=== PATIENT | female | born 1985 | race Caucasian/White ===

== ENCOUNTER 2017-10-30 13:49 | Emergency (ER) | payer SELFPAY ==
[~2017-10-30] VITALS: Ht 154.9 cm; Wt 82.0 kg
[2017-10-30 14:04] VITALS: BP 134/89
== END 2017-10-30 15:58 | disposition home or self-care (01) ==
LOC: ER 14:28
DX: L20.9 Atopic dermatitis, unspecified (principal)
CPT/HCPCS: 99283

== ENCOUNTER 2017-12-13 16:04 | Emergency (ER) | payer MEDICAID ==
[~2017-12-13] VITALS: Ht 154.9 cm; Wt 75.0 kg
[2017-12-13 16:12] VITALS: BP 133/81
== END 2017-12-13 22:51 | disposition left against medical advice (07) ==
LOC: ER 16:19
DX: R10.9 Unspecified abdominal pain (principal); Z53.21 Procedure and treatment not carried out due to patient leaving prior to being seen by health care provider

== ENCOUNTER 2019-04-05 13:17 | Emergency (ER) | payer SELFPAY ==
[~2019-04-05] VITALS: Ht 167.6 cm; Wt 75.0 kg
[2019-04-05] MEDS ORDERED: MORPHINE SULFATE 4 MG/ML CPJ (NOT FOR IM USE) IV STA (16:28)
[2019-04-05] MEDS ORDERED: KETOROLAC 30MG/ML VIAL IV STA (16:28)
[2019-04-05] MEDS ORDERED: ONDANSETRON HCL 4MG/2ML INJ IV STA (16:28)
[2019-04-05] MEDS ORDERED: SODIUM CHLORIDE 0.9% 1000ML BAG (SEPSIS BOLUS) IV ONE (16:30)
[2019-04-05 17:17] LABS: CLARITY URINE CLEAR (CLEAR); COLOR URINE YELLOW (YELLOW); KETONES URINE NEGATIVE (NEGATIVE); LEUKOCYTE ESTERASE URINE NEGATIVE (NEGATIVE); NITRITE URINE NEGATIVE (NEGATIVE); OCCULT BLOOD URINE NEGATIVE (NEGATIVE); PROTEIN URINE NEGATIVE (NEGATIVE); SPECIFIC GRAVITY URINE 1.015 (1.005-1.030); UROBILINOGEN URINE 0.2 E.U./dL (0.2-1.0)
[2019-04-05 17:31] LABS: HEMATOCRIT. 36.4 % (36.0-48.0); HEMOGLOBIN. 12.3 g/dL (12.0-16.0); MEAN CORPUSCULAR HEMOGLOBIN 29.2 pg (28.0-32.0); MEAN CORPUSCULAR VOLUME 86.1 fL (81.0-99.0); MEAN PLATELET VOLUME 7.4 fl (7.4-10.4); PLATELET 321 x1000/uL (130-400); RED BLOOD CELL COUNT 4.23 mill/uL (4.2-5.4); RED CELL DISTRIBUTION WIDTH 12.9 % (11.6-14.6)
[2019-04-05 17:33] LABS: CHLORIDE 105 mEq/L (98-107)
[2019-04-05 17:39] LABS: HCG SCREEN NEGATIVE
[2019-04-05 18:03] LABS: PLATELET ESTIMATE NORMAL
[2019-04-05 18:19] LABS: *AMPHETAMINES SCREEN URINE NEGATIVE (NEGATIVE); *BARBITURATES SCREEN URINE NEGATIVE (NEGATIVE); *BENZODIAZEPINES SCREEN URINE NEGATIVE (NEGATIVE); *COCAINE SCREEN URINE NEGATIVE (NEGATIVE); METHADONE URINE SCREEN NEGATIVE (NEGATIVE); PHENCYCLIDINE URINE SCREEN NEGATIVE (NEGATIVE)
[2019-04-05 18:20] LABS: OPIATES URINE SCREEN NEGATIVE (NEGATIVE)
[2019-04-05 18:36] LABS: CANNABINOID URINE SCREEN PRESUMTIVE POSITIVE (NEGATIVE)
[2019-04-05 20:45] VITALS: BP 133/76
== END 2019-04-05 20:46 | disposition home or self-care (01) ==
LOC: ER 13:17 → CANBEDREQ 23:40
DX: F12.188 Cannabis abuse with other cannabis-induced disorder (principal); E86.0 Dehydration; E66.01 Morbid (severe) obesity due to excess calories; Z68.26 Body mass index [BMI] 26.0-26.9, adult; Z97.5 Presence of (intrauterine) contraceptive device; Z98.890 Other specified postprocedural states
CPT/HCPCS: 36415; 71045; 74176; 80053; 80305; 80320; 81003; 83605; 83690; 84145; 84484; 84703; 85025; 85610; 87040; 87086; 93005; 96361; 96374; 96375; 99284; J1885; J2270; J2405; J7030; G0480

== ENCOUNTER 2020-04-17 11:49 | Emergency (ER) | payer MEDICAID ==
[~2020-04-17] VITALS: Ht 154.9 cm; Wt 91.0 kg
[2020-04-17] MEDS ORDERED: SODIUM CHLORIDE 0.9% 1,000 ML IV ONE (12:35)
[2020-04-17] MEDS ORDERED: ACETAMINOPHEN 325MG TABLET PO PRN (12:45)
[2020-04-17 13:44] LABS: BASOPHILS % 0.4 % (0.0-2.0); EOSINOPHILS % 6.2 % (0.0-5.0); HEMATOCRIT. 35.5 % (36.0-48.0); HEMOGLOBIN. 12.2 g/dL (12.0-16.0); LYMPHOCYTES % 28.8 % (20.0-50.0); MEAN CORPUSCULAR HEMOGLOBIN 29.9 pg (28.0-32.0); MEAN CORPUSCULAR VOLUME 87.3 fL (81.0-99.0); MEAN PLATELET VOLUME 7.4 fl (7.4-10.4); MONOCYTES % 9.4 % (2.0-8.0); NEUTROPHILS % 55.2 % (40.0-76.0); PLATELET 302 x1000/uL (130-400); RED BLOOD CELL COUNT 4.07 mill/uL (4.2-5.4); RED CELL DISTRIBUTION WIDTH 13.7 % (11.6-14.6)
[2020-04-17 13:51] LABS: CHLORIDE 110 mEq/L (98-107)
[2020-04-17 14:03] LABS: B-HCG QUANTITATIVE < 1 mIU/mL (<3)
[2020-04-17 16:21] LABS: CLARITY URINE CLOUDY (CLEAR); COLOR URINE ORANGE (YELLOW); KETONES URINE NEGATIVE (NEGATIVE); LEUKOCYTE ESTERASE URINE 1+ (NEGATIVE); NITRITE URINE NEGATIVE (NEGATIVE); OCCULT BLOOD URINE 3+ (NEGATIVE); PROTEIN URINE 2+ (NEGATIVE); SPECIFIC GRAVITY URINE 1.027 (1.005-1.030); UROBILINOGEN URINE 0.2 E.U./dL (0.2-1.0)
[2020-04-17 16:54] VITALS: BP 119/64
== END 2020-04-17 14:22 | disposition home or self-care (01) ==
LOC: ER 12:14
DX: N93.8 Other specified abnormal uterine and vaginal bleeding (principal); N39.0 Urinary tract infection, site not specified
CPT/HCPCS: 36415; 76830; 76856; 80053; 81003; 81025; 84702; 85025; 99285; J7030